=== PATIENT | male | born 1980 | race Two or more races ===

== ENCOUNTER 2016-09-06 10:36 | Emergency (ER) | payer MEDICAID ==
[2016-09-06] MEDS ORDERED: ACETAMINOPHEN 325 MG TABLET ONE (11:48)
[2016-09-06] MEDS ORDERED: DIPHENHYDRAMINE HCL 50 MG/1 ML VIAL ONE (11:49)
[2016-09-06] MEDS ORDERED: PROCHLORPERAZINE 5 MG/ML 2 ML VIAL ONE (11:49)
[2016-09-06] MEDS ORDERED: LACTATED RINGERS 1,000 ML ONE (11:49)
[2016-09-06] MEDS ORDERED: DEXAMETHASONE 4 MG TABLET ONE (11:49)
[2016-09-06 11:57] LABS: ABSOLUTE NEUTROPHIL COUNT 7.1 K/mm3 (1.8-7.7); BASO # 0.1 K/mm3 (0.0-0.2); BASO % 0.7 % (0.2-1.0); EOS # 0.1 (0.0-0.5); EOS % 1.2 % (0.9-2.9); HEMATOCRIT 47.9 % (32.0-52.0); HEMOGLOBIN 16.2 gm/l (14.0-18.0); IMM NEUT% 0.3 % (0-1); LYMPH % 19.9 % (15-45); MEAN CELL VOLUME 87.4 fl (80.0-94.0); MEAN CORPUSCULAR HEMOGLOBIN 29.6 pg (27.0-31.0); MEAN CORPUSCULAR HGB CONC 33.8 g/dl (33.0-37.0); MEAN PLATELET VOLUME 11.2 fl (7.4-10.4); MONO # 0.6 (0.0-0.8); NEUT % 71.9 % (43-75); PLATELET COUNT 267 K/mm3 (130-400); RED CELL DISTRIBUTION WIDTH 11.7 % (11.5-14.5)
[2016-09-06 12:10] LABS: CALCIUM 9.9 mg/dL (8.6-10.3)
[2016-09-06] MEDS ORDERED: MAGNESIUM SULFATE 1 G/100 ML 100 ML IV ONE (12:10)
[2016-09-06] MEDS ORDERED: MAGNESIUM SULFATE 2 G/50 ML 50 ML IV ONE (12:15)
[2016-09-06 12:32] LABS: INR 0.94; PROTHROMBIN TIME 9.9 SECONDS (9.3-11.4)
--- NOTE | 2016-09-06 12:58 | CT ---
HEAD W/O CON: 09/06/2016 11:44 AM CLINICAL HISTORY: Headache for 3 weeks. COMPARISON: None. TECHNIQUE: Contiguous axial 5 mm images from skull base to the vertex were obtained without IV contrast. Sagittal and coronal reformations with bone algorithm images were also obtained at this time. CT DI:: 51.7 DLP: 938.9 FINDINGS: Infarct: None Extra axial spaces: Normal in size and morphology for the patient's age. Hemorrhage: None. Ventricular system: Normal in size and morphology for the patient's age. Basal cisterns: Normal. Cerebral parenchyma: Normal. Midline shift: None. Cerebellum: Normal. Brainstem: Normal. OTHER: Calvarium: Normal. Vascular system: Normal. Visualized Paranasal sinuses and Mastoid air cells: Clear. Visualized Orbits and regional soft tissues: Normal. IMPRESSION: No acute intracranial process. Findings were called to Dr. Flannery at approximately 1228 hours on 09/06/2016.
== END 2016-09-06 13:46 | disposition home or self-care (01) ==
LOC: ED 10:36
DX: R51 Headache (principal)
CPT/HCPCS: 85025; 80048; 85610; 70450; 96375 ×2; 99284 ×2; 96365; 96366; J1200; J0780; A9270 ×2; J3475; J7120